=== PATIENT | female | born 1965 | race Caucasian/White ===

== ENCOUNTER → 2016-06-18 | Outpatient (CLI) | payer BC | LOC: OD 10:22 | PROVIDERS: ATTEND Internal Medicine Medical Oncology | DX: C50.912 Malignant neoplasm of unspecified site of left female breast (principal) | CPT/HCPCS: 71020 ==

== ENCOUNTER 2018-06-08 05:30 | Emergency (ER) | payer BC ==
[2018-06-08] MEDS ORDERED: DIPHENHYDRAMINE HCL 50 MG/ML VIAL IV ONE (07:25)
[2018-06-08] MEDS ORDERED: KETOROLAC TROMETHAMINE INJ/PF 30 MG/1 ML SDV IV ONE (07:25)
[2018-06-08] MEDS ORDERED: PROCHLORPERAZINE EDISYLATE INJ 10 MG/2 ML VIAL IV ONE (07:25)
--- NOTE | 2018-06-08 07:33 | ER Document Report ---
ED General - General Chief Complaint: Headache Stated Complaint: HEADACHE Time Seen by Provider: 06/08/18 07:09 Primary Care Provider: KARLI WALTERS DO [Primary Care Provider] - Follow up as needed TRAVEL OUTSIDE OF THE [place] IN LAST 30 DAYS: No - HPI Notes: Patient is a 53-year-old female with a history of breast cancer, in remission since 2008, chronic recurrent migraine/headaches who presents to the emergency department complaining of a headache to her right restorationist that will radiate to the lateral side of her head into the lateral neck. Patient states that she has headaches in this area frequently and usually takes Tylenol for them. Patient states that her current headache started yesterday and has been constant since. She has had multiple headaches like this in the past. Patient states that her headache started after receiving radiation and chemotherapy. states that she does not take her conservative medicine for pain regularly like she is supposed to. Patient states that she does have occasional light noise sensitivity. She did have some nausea without any vomiting earlier. Denies drug allergies or IV drug abuse. No other concerns or complaints. Denies any fever, head injury, neck pain, changes in vision/speech/mentation/hearing, URI, sore throat, chest pain, palpitations, syncope, cough, shortness of breath, wheeze, dyspnea, abdominal pain, vomiting/diarrhea, urinary retention, dysuria, hematuria, loss of control of bowel or bladder, numbness/tingling, saddle anesthesia, muscle paralysis/weakness, or rash. - Related Data Allergies/Adverse Reactions: No Known Allergies Allergy (Verified 05/03/12 11:04) Past Medical History - Social History Smoking Status: Current Every Day Smoker Family History: Reviewed & Not Pertinent Patient has suicidal ideation: No Patient has homicidal ideation: No Neurological Medical History: Reports: Hx Migraine Renal/ Medical History: Denies: Hx Peritoneal Dialysis Malignancy Medical History: Reports: Hx Breast Cancer GI Medical History: Reports: Hx Gastroesophageal Reflux Disease Past Surgical History: Reports: Hx Cholecystectomy, Hx Mastectomy - Immunizations Immunizations up to date: Yes Hx Diphtheria, Pertussis, Tetanus Vaccination: Yes Review of Systems - Review of Systems -: Yes All other systems reviewed and negative Physical Exam - Vital signs Vitals: Temp Pulse Resp BP Pulse Ox 98 F 79 14 153/76 H 98 06/08/18 05:31 06/08/18 05:31 02/13/19 05:31 06/08/18 05:31 06/08/18 05:31 - Notes Notes: PHYSICAL EXAMINATION: GENERAL: Well-appearing, well-nourished and in no acute distress. A&Ox4. An swers questions appropriately. HEAD: Atraumatic, normocephalic. + mild tenderness to the lateral head muscles, reproduces symptoms. EYES: Pupils equal round and reactive to light, extraocular movements intact, sclera anicteric, conjunctiva are normal. No nystagmus. vis jonhston intact. ENT: EAC clear b/l. TM's intact b/l without erythema, fluid, or perforation. Nares patent and without discharge. oropharynx clear without exudates. No tonsilar hypertrophy or erythema. Moist mucous membranes. No sinus tenderness. NECK: Normal range of motion, supple without lymphadenopathy. No rigid ity/meningismus. No midline tenderness. LUNGS: Breath sounds clear to auscultation bilaterally and equal. No wheezes rales or rhonchi. HEART: Regular rate and rhythm without murmurs, rubs, gallops. ABDOMEN: Soft, nontender, nondistended abdomen. No guarding, no rebound. Normal bowel sounds present. No CVA tenderness bilaterally. Musculoskeletal: Ext's b/l: FROM to passive/active. Strength 5+/5. No deficits noted. No bony tenderness of extremities. Extremities: No cyanosis, clubbing, or edema b/l. Peripheral pulses 2+. Capillary refill less than 2 seconds. NEUROLOGICAL: NIH 0. GCS 15. Cranial nerves grossly intact. Normal speech, normal gait. Normal sensory, motor exams. Reflexes 2+ b/l. SHAHBAZ's negative. Pronator drift negative. Heel/de dios, finger/nose wnl. PSYCH: Normal mood, normal affect. SKIN: Warm, Dry, normal turgor, no rashes or lesions noted. Course - Re-evaluation Re-evalutation: 06/08/18 08:39 Patient is an afebrile, well-hydrated, 53 year-old female who presents to the ED with a headache. Vitals are acceptable without any significant tachycardia, tachypnea, or hypoxia. PE is otherwise unremarkable for any focal neurological deficits. NIH 0, GCS 15, cranial nerves grossly intact. Patient has had headaches like this in the past recently. No labs or imaging warranted at this time based on H&P. Patient was given Toradol, Compazine, and benadryl which has resolved her headache. Patient states that she is feeling much better and would like to go home. She is nontoxic-appearing and is tolerating p.o. without any difficulties. Low suspicion for any acute glaucoma, temporal arteritis, meningitis, intracranial hemorrhage, ischemic stroke, or fracture at this time. Patient is aware that this condition can change from initial presentation and that she needs to monitor symptoms closely for any acute changes. Recheck with your PCM/neurologist in 3-5 days. Return to the ED with any worsening/concerning symptoms otherwise as reviewed in discharge. Patient is in agreement. - Vital Signs Vital signs: Temp Pulse Resp BP Pulse Ox 98 F 79 14 153/76 H 98 06/08/18 05:31 06/08/18 05:31 06/08/18 05:31 06/08/18 05:31 06/08/18 05:31 Discharge - Discharge Clinical Impression: Headache Qualifiers: Headache type: unspecified Headache chronicity pattern: acute headache Intrac tability: not intractable Qualified Code(s): R51 - Headache Condition: Stable Disposition: HOME, SELF-CARE Instructions: Headache ([facility]) Additional Instructions: Rest, Ice/cool compress Tylenol/ibuprofen as needed Light stretches daily Strength exercises as able Moist heat and massage may help F/u with your PCP in 3-5 days for a recheck Consider consult(s) with Neurology for ongoing/worsening symptoms Return to the ED with any worsening symptoms and/or development of fever, headache, changes in behavior/mentation/vision/speech, chest pain, palpitations, syncope, shortness of breath, trouble breathing, abdominal pain, n/v/d, blood in stool/urine, loss of control of bowel/bladder, urinary retention, muscle weakness/paralysis, saddle anesthesia, numbness/tingling, or other worsening symptoms that are concerning to you. Forms: Elevated Blood Pressure, Smoking Cessation Education Referrals: KARLI WALTERS DO [Primary Care Provider] - Follow up in 3-5 days
[2018-06-08 09:22] VITALS: BP 112/68
== END 2018-06-08 09:20 | disposition home or self-care (01) ==
LOC: ER 05:30
DX: R51 Headache (principal); M54.2 Cervicalgia; F17.200 Nicotine dependence, unspecified, uncomplicated
CPT/HCPCS: 99283; 96374; 96375; J1200; J1885; J0780